=== PATIENT | female | born 1930 | race Caucasian/White ===

== ENCOUNTER 2017-03-22 15:20 | Emergency (ER) | payer MEDICARE, BC ==
[2017-03-22 15:26] VITALS: BP 144/83
== END 2017-03-22 15:28 | disposition home or self-care (01) ==
LOC: ER 15:20
DX: Z13.6 Encounter for screening for cardiovascular disorders (principal)

== ENCOUNTER 2017-07-05 10:44 | Emergency (ER) | payer MEDICARE, OTHER ==
[2017-07-05] MEDS ORDERED: LORazepam 1 MG TABLET ONE (11:56)
[2017-07-05] MEDS ORDERED: LORazepam 1 MG TABLET PO ONE (12:00)
[2017-07-05] MEDS ORDERED: carBAMazepine 100 MG TAB.CHEW PO ONE (12:30)
--- NOTE | 2017-07-05 13:06 | ERNOTE ---
Psychological HPI - General Chief Complaint: Anxiety Source: Reports: patient, RN/MD Exam Limitations: Reports: no limitations - Immun/Allergies/Home Medications Allergies/Adverse Reactions: Allergies No Known Allergies Allergy (Verified 07/05/17 11:01) Home Medications: HOME MEDICATIONS Levothyroxine Sodium [Synthroid] 75 mcg PO Q48H 11/22/13 [Last Taken Unknown] Multivitamins [Multivitamin Royce] 1 cap PO DAILY 11/22/13 [Last Taken Unknown] [place]-3S/Dha/Epa/Fish Oil [Fish Oil EC 1,200 mg Softgel] 2 each PO DAILY [Last Taken Unknown] Zolpidem Tartrate 10 mg PO HS 11/22/13 [Last Taken Unknown] ALPRAZolam [Xanax] 1 mg PO TID PRN 09/29/15 [Last Taken Unknown] Cholecalciferol (Vitamin D3) [Vitamin D3] 2,000 unit PO DAILY 09/10/16 [Last Taken Unknown] Lisinopril/Hydrochlorothiazide [Lisinopril-Hctz 20-12.5 mg Tab] 1 each PO DAILY 09/10/16 [Last Taken Unknown] Sennosides [Senokot] 8.6 mg PO DAILY PRN 09/10/16 [Last Taken Unknown] LORazepam [Ativan] 1 mg PO BID #20 tablet 06/21/17 [Last Taken Unknown] Rosuvastatin Calcium [Crestor] 20 mg PO DAILY 06/21/17 [Last Taken Unknown] Aspirin [Aspirin Enteric Coated] 81 mg PO DAILY 07/05/17 [Last Taken Unknown] Carbamazepine [Carbamazepine ER] 100 mg PO BID #20 tab.er.12h 07/05/17 [Last Taken Unknown] LORazepam [Ativan] 1 mg PO BID #20 tab 07/05/17 [Last Taken Unknown] Mirtazapine [Mirtazapine (Remeron)] 15 mg PO HS 07/05/17 [Last Taken Unknown] Sertraline HCl [Zoloft] 25 mg PO DAILY 07/05/17 [Last Taken Unknown] - History of Present Illness Narrative: Patient is currently being seen by Dr. Christine and she is struggling with the patient's underlying anxiety disorder. Patient was sent to the emergency department today to see if we had any new insight we could lend toward the care of the patient. Time Seen by Provider: 07/05/17 10:46 Onset/duration: Reports: continues in ED - chronic Situational Problems: Reports: other - children Associated Symptoms: Reports: other - anxiety with depression and a high degree of perseveration Prior Treament: Reports: recently seen, treated by physician, similar symptoms before Review of Systems - Review of Systems Constitutional: Present: See HPI EYE: Present: no symptoms reported ENT: Present: no symptoms reported Respiratory: Present: no symptoms reported Cardiology: Present: no symptoms reported Gastrointestinal/Abdominal: Present: no symptoms reported Genitourinary: Present: no symptoms reported Musculoskeletal: Present: no symptoms reported Skin: Present: no symptoms reported Neurological: Present: no symptoms reported Endocrine: Present: no symptoms reported Hematologic/Lymphatic: Present: no symptoms reported Psych: Present: anxiety, depressed, emotional problems - Patient's Past Medical History Patient History - Medical: Anemia, Anxiety, Arthritis, Depression, GERD, Hypothyroidism, Renal Failure Patient History - Cardiac/Respiratory: Aneurysm, Hypertension, Hyperlipidemia Patient History - Cancer: No Hx of Cancer Patient History - Surgical Procedures: Appendectomy, Cataracts, Colonoscopy, Hysterectomy, T & A Patient History - Other: None LMP (females 10-50): Menopausal - Family History Father Family History - Medical: Family History - Cardiac/Respiratory: Myocardial Infarction Mother Family History - Medical: Family History - Cardiac/Respiratory: CVA/Stroke son Family History - Medical: Family History - Cardiac/Respiratory: Myocardial Infarction - Social History Living Situations: home Abuse History: No History of abuse Psych History: No pertinent hx Smoking Status: Former smoker Alcohol Use: none Drug Use: none - Immunizations Immunizations Up to Date: Yes Hx Pneumococcal Vaccination: Yes History of Influenza Vaccine: Yes Psychological Exam - Exam General Appearance: Present: wd/wn, alert, no apparent distress Head Exam: Present: normal inspection, no evidence of injury Neurological: Present: alert, anxious, other - very fearful Thoughts/Hallucinations: Present: other - patient has a degree of perseveration Behavior/Eye Contact/Speech: Present: cooperative, good eye contact, increased rate of speech ENT Exam normal except (see below): Yes Ears, Nose, Throat: Present: normal ENT inspection Neck: Present: normal inspection, nontender Respiratory: Present: no respiratory distress, normal breath sounds, no accessory muscle use, chest nontender, lungs clear Cardiovascular/Chest: Present: regular rate, rhythm, no murmur, normal peripheral pulses Gastrointestinal/Abdominal: Present: normal bowel sounds, nontender, nondistended, soft, no organomegaly Rectal Exam: Present: deferred Pelvic Exam: Present: deferred Back Exam: Present: normal inspection, normal range of motion, no CVA tenderness , no vertebral tenderness Extremity Exam: Present: normal inspection, normal range of motion, no edema Skin Exam: Present: normal color, warm/dry, no cyanosis Lymphatic Exam: Present: no adenopathy ED Progress - Vital Signs Patient's Vital Signs:: I have reviewed the patient's vital signs. Vital Signs: Vital Signs 07/05/17 07/05/17 10:49 12:01 Temperature 36.3 C L Pulse Rate 108 H 119 H Respiratory 18 18 Rate Blood Pressure 143/95 129/82 O2 Sat by Pulse 96 97 Oximetry - Progress/Reassessment Chief Complaint: Anxiety Time Seen by Provider: 07/05/17 10:46 Plan - Plan Plan: I had a nice discussion with Dr. Christine and were both somewhat frustrated with how to help Elisha. Patient does not meet any Admission Criteria so We're Trying to Find Some Outpatient Facility That Will Provide Some Support. We did get an appointment for August 24 at 9 AM with [facility] for further psychiatric care. Patient is currently on sertraline and Xanax from Dr. Christine and we will try to add Tegretol as a mood stabilizer to her regimen. I am suspecting some possible early dementia as being in the mix as well and this will need to be addressed by [facility] at the time of her appointment. Departure Clinical Impression: Anxiety and depression - Departure Disposition: Home self-care Condition: Good Instructions: Panic Attacks, [id number], Dysphoria Additional Instructions: You have an appointment with [facility] on August 24 at 9 in the morning, please arrive 30 minutes or, they are located at [facility] here in [place]. The number is [phone] Referrals: Martha Christine DO [Primary Care Provider] - Prescriptions: Carbamazepine [Carbamazepine ER] 100 mg PO BID #20 tab.er.12h LORazepam [Ativan] 1 mg PO BID #20 tab
[2017-07-05 13:16] VITALS: BP 139/77
== END 2017-07-05 13:18 | disposition home or self-care (01) ==
LOC: ER 10:44
DX: F41.8 Other specified anxiety disorders (principal); D64.9 Anemia, unspecified; M19.90 Unspecified osteoarthritis, unspecified site; K21.9 Gastro-esophageal reflux disease without esophagitis; E03.9 Hypothyroidism, unspecified; I10 Essential (primary) hypertension; E78.5 Hyperlipidemia, unspecified

== ENCOUNTER 2017-07-10 07:41 | Emergency (ER) | payer MEDICARE, OTHER ==
[2017-07-10] MEDS ORDERED: LORazepam 1 MG TABLET ONE (07:53)
[2017-07-10] MEDS ORDERED: LORazepam 1 MG TABLET PO ONE (07:53)
--- NOTE | 2017-07-10 08:00 | ERNOTE ---
Psychological HPI - Date Date of Service: 07/10/17 - General Chief Complaint: Anxiety Source: Reports: patient, family - Immun/Allergies/Home Medications Allergies/Adverse Reactions: Allergies No Known Allergies Allergy (Verified 07/10/17 07:52) Home Medications: HOME MEDICATIONS Levothyroxine Sodium [Synthroid] 75 mcg PO Q48H 11/22/13 [Last Taken Unknown] Multivitamins [Multivitamin Royce] 1 cap PO DAILY 11/22/13 [Last Taken Unknown] [place]-3S/Dha/Epa/Fish Oil [Fish Oil EC 1,200 mg Softgel] 2 each PO DAILY [Last Taken Unknown] Zolpidem Tartrate 10 mg PO HS 11/22/13 [Last Taken Unknown] ALPRAZolam [Xanax] 1 mg PO TID PRN 09/29/15 [Last Taken Unknown] Cholecalciferol (Vitamin D3) [Vitamin D3] 2,000 unit PO DAILY 09/10/16 [Last Taken Unknown] Lisinopril/Hydrochlorothiazide [Lisinopril-Hctz 20-12.5 mg Tab] 1 each PO DAILY 09/10/16 [Last Taken Unknown] Sennosides [Senokot] 8.6 mg PO DAILY PRN 09/10/16 [Last Taken Unknown] LORazepam [Ativan] 1 mg PO BID #20 tablet 06/21/17 [Last Taken Unknown] Rosuvastatin Calcium [Crestor] 20 mg PO DAILY 06/21/17 [Last Taken Unknown] Aspirin [Aspirin Enteric Coated] 81 mg PO DAILY 07/05/17 [Last Taken Unknown] Carbamazepine [Carbamazepine ER] 100 mg PO BID #20 tab.er.12h 07/05/17 [Last Taken Unknown] LORazepam [Ativan] 1 mg PO BID #20 tab 07/05/17 [Last Taken Unknown] Mirtazapine [Mirtazapine (Remeron)] 15 mg PO HS 07/05/17 [Last Taken Unknown] Sertraline HCl [Zoloft] 25 mg PO DAILY 07/05/17 [Last Taken Unknown] LORazepam [Ativan] 1 mg PO TID #30 tab 07/10/17 [Last Taken Unknown] - History of Present Illness Narrative: patient has had ongoing issues with anxiety had stopped ativan and xanax not helping Time Seen by Provider: 07/10/17 07:54 Arrived by: Reports: private car Onset/duration: Reports: gradual onset, constant, continues in ED Intent: Reports: no prior thoughts-suicide Situational Problems: Reports: other - anxiety issues with family Prior Treament: Reports: recently seen, treated by physician, recently hospitalized Review of Systems - Narrative Narrative: negative except for anxiety - Review of Systems Constitutional: Present: See HPI, weakness, fatigue, malaise EYE: Present: no symptoms reported ENT: Present: no symptoms reported Respiratory: Present: no symptoms reported Cardiology: Present: no symptoms reported Gastrointestinal/Abdominal: Present: no symptoms reported Genitourinary: Present: no symptoms reported Musculoskeletal: Present: no symptoms reported Skin: Present: no symptoms reported Neurological: Present: no symptoms reported Endocrine: Present: no symptoms reported Hematologic/Lymphatic: Present: no symptoms reported Psych: Present: See HPI, anxiety, emotional problems All Other Systems: All systems neg except as marked - Narrative Narrative: as noted - Patient's Past Medical History Patient History - Medical: Anemia, Anxiety, Arthritis, Depression, GERD, Hypothyroidism, Renal Failure Patient History - Cardiac/Respiratory: Aneurysm, Hypertension, Hyperlipidemia Patient History - Cancer: No Hx of Cancer Patient History - Surgical Procedures: Appendectomy, Cataracts, Colonoscopy, Hysterectomy, T & A Patient History - Other: None LMP (females 10-50): Menopausal - Family History Family History:: no untoward family reactions to anesthesia, no familial bleeding tendencies, no family history of clotting disorders, no family history of premature - Family History Father Family History - Medical: Family History - Cardiac/Respiratory: Myocardial Infarction Mother Family History - Medical: Family History - Cardiac/Respiratory: CVA/Stroke Family History - Cancer: No pertinent family hx son Family History - Medical: Family History - Cardiac/Respiratory: Myocardial Infarction Family History - Cancer: No pertinent family hx - Social History Living Situations: alone Abuse History: No History of abuse Psych History: Hx of Anxiety Smoking Status: Former smoker Have you smoked in the past 12 months: No Do you dip or chew tobacco: No Patient requests Smoking Cessation Consult: No Initiate information on Smoking Cessation: No Alcohol Use: none Drug Use: none - Immunizations Immunizations Up to Date: Yes Hx Pneumococcal Vaccination: Yes History of Influenza Vaccine: Yes Psychological Exam - Exam Narrative: patient appears extremely anxious General Appearance: Present: moderate distress, crying Head Exam: Present: normal inspection, no evidence of injury Neurological: Present: alert, normal mood/affect, tour counselor II-XII nml as tested, oriented x 3 Thoughts/Hallucinations: Present: normal thought pattern Behavior/Eye Contact/Speech: Present: cooperative, good eye contact, normal speech ENT Exam normal except (see below): Yes Eye Exam: Normal inspection: bilateral, PERRL: bilateral, EOMI: bilateral Ears, Nose, Throat: Present: normal ENT inspection Neck: Present: normal inspection, nontender Respiratory: Present: no respiratory distress, normal breath sounds Cardiovascular/Chest: Present: regular rate, rhythm, no murmur, normal peripheral pulses Peripheral Pulses: Carotid (R): Normal, Carotid (L): Normal, Radial (R): Normal , Radial (L): Normal, Brachial (R): Normal, Brachial (L): Normal, Femoral (R): Normal, Femoral (L): Normal, Posterior tib (R): Normal Gastrointestinal/Abdominal: Present: normal bowel sounds, nontender, nondistended, soft, no organomegaly Back Exam: Present: normal inspection, normal range of motion, no CVA tenderness , no vertebral tenderness Extremity Exam: Present: normal inspection Deep Tendon Reflexes: Bicep (R): Normal, Bicep (L): Normal, Tricep (R): Normal, Tricep (L): Normal, Knee (R): Normal, Knee (L): Normal, Ankle (R): Normal, Ankle (L): Normal Skin Exam: Present: normal color, warm/dry, no cyanosis Lymphatic Exam: Present: no adenopathy ED Progress - Date and Time Seen: Date and Time: 07/10/17 08:39 patient improved, discussed med changes, to hold xanax and take ativan and other meds - Vital Signs Patient's Vital Signs:: I have reviewed the patient's vital signs. Vital Signs: Vital Signs 07/10/17 07:44 Temperature 35.8 C L Pulse Rate 83 Respiratory 16 Rate Blood Pressure 140/65 O2 Sat by Pulse 100 Oximetry - Progress/Reassessment Chief Complaint: Anxiety Progress:: Improved - Transfer of Care Expected Disposition: Discharge Time Seen by Provider: 07/10/17 07:54 Plan - Plan Plan: to be discharged, f/u with fp and counselor Departure Clinical Impression: Anxiety and depression - Departure Disposition: Home self-care Condition: Fair Instructions: Panic Attacks, [id number], Insomnia Referrals: Martha Christine DO [Primary Care Provider] - Prescriptions: LORazepam [Ativan] 1 mg PO TID #30 tab
[2017-07-10 08:56] VITALS: BP 138/66
== END 2017-07-10 08:53 | disposition home or self-care (01) ==
LOC: ER 07:41
DX: F41.9 Anxiety disorder, unspecified (principal); F32.9 Major depressive disorder, single episode, unspecified; E78.5 Hyperlipidemia, unspecified; E03.9 Hypothyroidism, unspecified; I10 Essential (primary) hypertension; Z87.891 Personal history of nicotine dependence

== ENCOUNTER 2017-07-23 14:29 | Emergency (ER) | payer MEDICARE, OTHER ==
[2017-07-23 15:20] VITALS: BP 168/90
[2017-07-23] MEDS ORDERED: ALPRAZolam 0.25 MG TABLET ONE (16:31)
[2017-07-23] MEDS ORDERED: ALPRAZolam 0.25 MG TABLET PO ONE (16:33)
--- NOTE | 2017-07-23 17:08 | ERNOTE ---
Psychological HPI - Date Date of Service: 07/23/17 - General Chief Complaint: Anxiety Source: Reports: patient Exam Limitations: Reports: no limitations - Immun/Allergies/Home Medications Allergies/Adverse Reactions: Allergies No Known Allergies Allergy (Verified 07/10/17 07:52) Home Medications: HOME MEDICATIONS Levothyroxine Sodium [Synthroid] 75 mcg PO Q48H 11/22/13 [Last Taken Unknown] Multivitamins [Multivitamin Royce] 1 cap PO DAILY 11/22/13 [Last Taken Unknown] [place]-3S/Dha/Epa/Fish Oil [Fish Oil EC 1,200 mg Softgel] 2 each PO DAILY [Last Taken Unknown] Zolpidem Tartrate 10 mg PO HS 11/22/13 [Last Taken Unknown] ALPRAZolam [Xanax] 1 mg PO TID PRN 09/29/15 [Last Taken Unknown] Cholecalciferol (Vitamin D3) [Vitamin D3] 2,000 unit PO DAILY 09/10/16 [Last Taken Unknown] Lisinopril/Hydrochlorothiazide [Lisinopril-Hctz 20-12.5 mg Tab] 1 each PO DAILY 09/10/16 [Last Taken Unknown] Sennosides [Senokot] 8.6 mg PO DAILY PRN 09/10/16 [Last Taken Unknown] LORazepam [Ativan] 1 mg PO BID #20 tablet 06/21/17 [Last Taken Unknown] Rosuvastatin Calcium [Crestor] 20 mg PO DAILY 06/21/17 [Last Taken Unknown] Aspirin [Aspirin Enteric Coated] 81 mg PO DAILY 07/05/17 [Last Taken Unknown] Carbamazepine [Carbamazepine ER] 100 mg PO BID #20 tab.er.12h 07/05/17 [Last Taken Unknown] LORazepam [Ativan] 1 mg PO BID #20 tab 07/05/17 [Last Taken Unknown] Mirtazapine [Mirtazapine (Remeron)] 15 mg PO HS 07/05/17 [Last Taken Unknown] Sertraline HCl [Zoloft] 25 mg PO DAILY 07/05/17 [Last Taken Unknown] LORazepam [Ativan] 1 mg PO TID #30 tab 07/10/17 [Last Taken Unknown] - History of Present Illness Narrative: 86-year-old female presents to the emergency room for anxiety. Patient states that they have pinched her antianxiety meds are on and today she has been feeling particularly anxious. Patient states that she took her anxiety medicine this morning and at 12:00 and still is very anxious. Time Seen by Provider: 07/23/17 15:31 Arrived by: Reports: private car Onset/duration: Reports: sudden onset Review of Systems - Review of Systems Constitutional: Present: See HPI EYE: Present: no symptoms reported ENT: Present: no symptoms reported Respiratory: Present: no symptoms reported Cardiology: Present: no symptoms reported Gastrointestinal/Abdominal: Present: no symptoms reported Genitourinary: Present: no symptoms reported Musculoskeletal: Present: no symptoms reported Skin: Present: no symptoms reported Neurological: Present: no symptoms reported Endocrine: Present: no symptoms reported Hematologic/Lymphatic: Present: no symptoms reported Psych: Present: See HPI, anxiety All Other Systems: All systems neg except as marked - Patient's Past Medical History Patient History - Medical: Anemia, Anxiety, Arthritis, Depression, GERD, Hypothyroidism, Renal Failure Patient History - Cardiac/Respiratory: Aneurysm, Hypertension, Hyperlipidemia Patient History - Cancer: No Hx of Cancer Patient History - Surgical Procedures: Appendectomy, Cataracts, Colonoscopy, Hysterectomy, T & A Patient History - Other: None - Family History Father Family History - Medical: Family History - Cardiac/Respiratory: Myocardial Infarction Mother Family History - Medical: Family History - Cardiac/Respiratory: CVA/Stroke Family History - Cancer: No pertinent family hx son Family History - Medical: Family History - Cardiac/Respiratory: Myocardial Infarction Family History - Cancer: No pertinent family hx - Social History Living Situations: alone Abuse History: No History of abuse Psych History: Hx of Anxiety, Hx of Depression Smoking Status: Former smoker Have you smoked in the past 12 months: No Alcohol Use: none Drug Use: none - Immunizations Immunizations Up to Date: Yes Hx Pneumococcal Vaccination: Yes History of Influenza Vaccine: Yes Psychological Exam - Exam General Appearance: Present: wd/wn, alert, anxious Head Exam: Present: normal inspection, no evidence of injury Neurological: Present: alert, oriented x 3, anxious Thoughts/Hallucinations: Present: normal thought pattern Behavior/Eye Contact/Speech: Present: cooperative, good eye contact, normal speech ENT Exam normal except (see below): Yes Eye Exam: Normal inspection: bilateral, PERRL: bilateral Ears, Nose, Throat: Present: normal ENT inspection, normal pharynx Neck: Present: normal inspection, nontender, supple, full range of motion Respiratory: Present: no respiratory distress, normal breath sounds, no accessory muscle use, chest nontender, lungs clear Cardiovascular/Chest: Present: regular rate, rhythm, no murmur, normal peripheral pulses Gastrointestinal/Abdominal: Present: normal bowel sounds, nontender, nondistended, soft, no organomegaly Back Exam: Present: normal inspection, normal range of motion, no CVA tenderness , no vertebral tenderness Extremity Exam: Present: normal inspection, non-tender, normal range of motion, no edema Skin Exam: Present: normal color, warm/dry, no cyanosis Lymphatic Exam: Present: no adenopathy ED Progress - Vital Signs Patient's Vital Signs:: I have reviewed the patient's vital signs. Vital Signs: Vital Signs 07/23/17 14:33 Temperature 36.4 C L Pulse Rate 98 Respiratory 16 Rate Blood Pressure 168/90 O2 Sat by Pulse 99 Oximetry - Progress/Reassessment Chief Complaint: Anxiety Progress:: Improved Progress Note-Subjective: 07/23/17 17:05 improved after medication. Time Seen by Provider: 07/23/17 15:31 Plan - Plan Plan: patient will keep Tuesday and Tue follow up apt with PCP and Psychologist Departure Clinical Impression: Anxiety - Departure Disposition: Home self-care Condition: Stable Instructions: Panic Attacks, [id number] Additional Instructions: patient to follow up with PCP tuesday and keep psychologist for Tuesday. Return to ED if symptoms persist. Referrals: Martha Christine DO [Primary Care Provider] -
[2017-07-25] MEDS ORDERED: LORazepam 2 MG/ML DISP.SYRIN ONE (10:32)
== END 2017-07-23 17:15 | disposition home or self-care (01) ==
LOC: ER 14:29
DX: Z87.891 Personal history of nicotine dependence; F41.9 Anxiety disorder, unspecified

== ENCOUNTER 2018-03-28 09:12 | Observation (INO) | payer MEDICARE, OTHER ==
[2018-03-28] MEDS ORDERED: NORMAL SALINE 1,000 ML IV ONE (09:47)
[2018-03-28 10:02] LABS: Hematocrit 33.7 % (37.0-47.0); Hemoglobin 11.6 gm/dL (12.5-16.0); Mean Cell Volume 86.2 fl (78-100); Mean Corpuscular Hemoglobin 29.7 pg (27-31); Mean Corpuscular Hgb Conc 34.4 g/dl (32-36); Mean Platelet Volume 7.8 fl (8-12.5); Neutrophil # 2.7 K/mm3 (1.3-6.0); Neutrophil % 70.7 % (42-75.0); Platelet Count 125 K/mm3 (150-450); Red Blood Count 3.91 M/mm3 (4.2-5.4); Red Cell Distribution Width 13.5 % (11.5-14.0); White Blood Count 3.8 K/mm3 (4.0-10.5)
[2018-03-28 10:06] LABS: Urine Bilirubin Negative (NEGATIVE); Urine Blood Negative /ul (NEGATIVE); Urine Ketone Negative (NEGATIVE); Urine Nitrite Negative (NEGATIVE); Urine Protein Negative (NEGATIVE); Urine Specific Gravity <=1.005 SP.GR. (1.005-1.010); Urine Urobilinogen Normal (NORMAL)
[2018-03-28 10:19] LABS: Urine Appearance Slightly Cloudy (CLEAR); Urine Bacteria 1+; Urine Color Pale Yellow; Urine RBC None Seen /hpf (0-5); Urine WBC 25-50 /hpf (0-5)
[2018-03-28 10:36] LABS: ALT 23 U/L (19-67); AST 21 U/L (0-48); Alkaline Phosphatase * 63 U/L (50-170); Anion Gap 9.5 mmol/L (6.8-13.8); BUN/Creatinine Ratio 15.3 (9.0-21.6); Bilirubin, Total 0.5 mg/dL (0.0-1.1); Blood Urea Nitrogen 13 mg/dL (3-23); Ca. Corrected For Albumin 8.8 mg/dL (8.4-10.2); Calcium * 9.1 mg/dL (7.9-10.9); Chloride 89 mmol/L (97-106); Glucose * 91 mg/dL (70-110); Potassium 3.5 mmol/L (3.4-4.6); Sodium 126 mmol/L (132-142); TSH * 2.971 uIU/mL (0.358-3.74); Troponin I Less than 0.017 ng/mL (0.00-0.10)
--- NOTE | 2018-03-28 11:27 | ERNOTE ---
Medical Problem HPI - Narrative Date of Service: 03/28/18 - General Chief Complaint: General Assessment Time Seen by Provider: 03/28/18 09:36 Source: patient Exam Limitations: no limitations - Immun/Allergies/Home Medications Immunizations: IMMUNIZATION HX Immunizations Up to Date Yes History of Influenza Vaccine Yes Hx Pneumococcal Vaccination Yes Allergies/Adverse Reactions: Allergies sertraline Adverse Reaction (Mild, Verified 03/28/18 09:23) Other hot flashes, constipation Home Medications: HOME MEDICATIONS Levothyroxine Sodium [Synthroid] 75 mcg PO Q48H 11/22/13 [Last Taken Unknown] Multivitamins [Multivitamin Royce] 1 cap PO DAILY 11/22/13 [Last Taken Unknown] [place]-3S/Dha/Epa/Fish Oil [Fish Oil EC 1,200 mg Softgel] 2 each PO DAILY 11/22/13 [Last Taken Unknown] Cholecalciferol (Vitamin D3) [Vitamin D3] 2,000 unit PO DAILY 09/10/16 [Last Taken Unknown] Lisinopril/Hydrochlorothiazide [Lisinopril-Hctz 20-12.5 mg Tab] 1 each PO DAILY 09/10/16 [Last Taken Unknown] Sennosides [Senokot] 8.6 mg PO DAILY PRN 09/10/16 [Last Taken Unknown] Rosuvastatin Calcium [Crestor] 20 mg PO DAILY 06/21/17 [Last Taken Unknown] Aspirin [Aspirin Enteric Coated] 81 mg PO DAILY 07/05/17 [Last Taken Unknown] donepezil 5 mg tablet 5 mg PO DAILY 01/16/18 [Last Taken Unknown] alprazolam 1 mg tablet 1 mg PO TID #90 tab 02/22/18 [Last Taken Unknown] lamotrigine 25 mg tablet 75 mg PO DAILY #90 tab 02/22/18 [Last Taken Unknown] mirtazapine 45 mg tablet 45 mg PO HS #30 tab 02/22/18 [Last Taken Unknown] - History of Present History Narrative: Patient presents to the ED after being called and told to come in for fluids. She had labs drawn yesterday and those results showed severe hyponatremia. She relates that she just hasn't felt like eating but is still drinking. Actually been trying to drink alot. No fever. Some cough. No chest pain or SOB. Has chronic problems with UTIs. No acute abdominal pain. Nothing makes this better or worse. Denies acute pain. Timing: constant Severity: mild Modifying Factors - (Improves): Present: other - nothign Modifying Factors - (Worsens): Present: other - nothing Review of Systems - Review of Systems Constitutional: Absent: fever EYE: Present: no symptoms reported ENT: Absent: sore throat Respiratory: Absent: shortness of breath Cardiology: Absent: chest pain Gastrointestinal/Abdominal: Absent: abdominal pain Genitourinary: Present: See HPI Neurological: Absent: weakness All Other Systems: All systems neg except as marked Medical History (Last Reviewed 03/28/18 @ 11:22 by Johnnie Wallace MD) Major depression (Chronic) Generalized anxiety disorder (Chronic) Arthritis (Chronic) Onset Date: Unknown AAA (abdominal aortic aneurysm) (Acute) Onset Date: 08/03/16 Iron deficiency anemia (Acute) Onset Date: Unknown Headache (Acute) Hypertension (Chronic) Anxiety (Acute) Anxiety and depression (Acute) Urinary tract infection (Acute) Diverticulosis of colon Onset Date: 12/31/02 Essential hypertension Onset Date: 08/03/16 H/O hyperthyroidism Onset Date: Unknown Hyperlipidemia Onset Date: Unknown Insomnia Onset Date: Unknown Normal cystoscopy Pulmonary embolism Onset Date: Unknown Pulmonary nodule Systolic murmur Onset Date: Unknown Thoracic aortic aneurysm without rupture Onset Date: 11/24/16 Carotid stenosis Chronic constipation Onset Date: 08/03/16 GERD (gastroesophageal reflux disease) Onset Date: Unknown Major depressive disorder Surgical History: Surgical History (Last Reviewed 03/28/18 @ 11:22 by Johnnie Wallace MD) Cataract Onset Date: 2003 Hx of biopsy Normal colonoscopy Onset Date: 09/16/05 S/P appendectomy Onset Date: 1943 S/P tonsillectomy and adenoidectomy Onset Date: 1943 History of YAG laser capsulotomy of lens Status post SAL[place]-BSO Family History: Family History (Last Reviewed 03/28/18 @ 11:22 by Johnnie Wallace MD) Daughter Malignant melanoma Cancer of kidney Lymphoma Multiple sclerosis Father Myocardial infarction Mother CVA (cerebral vascular accident) Colon cancer Sister Bright's disease Son Myocardial infarction Social History: Preferred Language Turkmen Abuse History No History of abuse Psych History Hx of Anxiety,Hx of Depression Alcohol Use none Drug Use none Physical Exam - Physical Exam General Appearance: Present: alert, no apparent distress Head Exam: Present: normal inspection, no evidence of injury Eye Exam: Normal inspection: bilateral, PERRL: bilateral Ears, Nose, Throat: Present: normal ENT inspection Neck: Present: normal inspection Respiratory: Present: no respiratory distress, normal breath sounds, no accessory muscle use, lungs clear Cardiovascular/Chest: Present: regular rate, rhythm, normal peripheral pulses Gastrointestinal/Abdominal: Present: normal bowel sounds, nontender, nondistended, soft Back Exam: Present: no vertebral tenderness Extremity Exam: Present: normal inspection Neurological Exam: Present: alert, no motor/sensory deficits Skin Exam: Present: normal color, warm/dry ED Progress - Results and Orders Patient's Lab Results:: I have reviewed the patient's lab results. - Vital Signs Patient's Vital Signs:: I have reviewed the patient's vital signs. Vital Signs: Vital Signs 03/28/18 09:20 03/28/18 09:26 03/28/18 09:47 Temperature 36.5 C Pulse Rate 86 91 87 Respiratory Rate 12 12 12 Blood Pressure 183/94 H 146/78 161/86 H O2 Sat by Pulse Oximetry 98 99 98 03/28/18 10:15 03/28/18 10:35 03/28/18 10:52 Temperature Pulse Rate 90 91 93 Respiratory Rate 12 12 12 Blood Pressure 142/94 H 141/94 H 143/89 O2 Sat by Pulse Oximetry 98 97 98 - EKG EKG: NSR EKG read: Interp. by me EKG Comments: NSR rate 85. Non-specific changes, no STEMI. - X-Ray X-Ray #1 X-Ray: chest Interpretation: Interp. by me X-ray Comments: I reviewed official radiology report - Progress/Reassessment Chief Complaint: General Assessment Progress Note-Subjective: 03/28/18 11:26 IV fluids given. IV ABx. Dr Christine not available. D/W Dr Pham who will admit. Patient agreeable. Departure Clinical Impression: Hyponatremia, UTI (urinary tract infection) - Departure Disposition: Still a patient Condition: Stable
[2018-03-28] MEDS ORDERED: SENNOSIDES 8.6 MG TABLET PO PRN (12:03)
[2018-03-28] MEDS ORDERED: LEVOTHYROXINE SODIUM 75 MCG TABLET PO SCH (12:15)
--- NOTE | 2018-03-28 13:19 | HP ---
Chief Complaint - Chief Complaint Date of Service: 03/28/18 Time of Service: 13:14 Chief Complaint: Weakness History of Present Illness: Elisha is an 87 yo female who reports dealing with a urinary tract infection for the last two months. She reports urinary frequency, urgency, and dysuria. She has been trying to drink lots of water to flush it out. She has been drinking so much water that she has been too full to eat food. She reports weakness and imbalance. She had routine labs prior to a clinic appointment that showed a sodium of 118. She was to follow up in clinic but to go to the ER if not improving. She continued to have some weakness and urinary symptoms so presented to the ER today. UA does look suspicious for UTI. Sodium has improved to 126 today. Medical History (Last Reviewed 03/28/18 @ 12:50 by Consuelo Crespo RN) Major depression (Chronic) Generalized anxiety disorder (Chronic) Arthritis (Chronic) Onset Date: Unknown AAA (abdominal aortic aneurysm) (Acute) Onset Date: 08/03/16 Iron deficiency anemia (Acute) Onset Date: Unknown Headache (Acute) Hypertension (Chronic) Anxiety (Acute) Anxiety and depression (Acute) Urinary tract infection (Acute) Diverticulosis of colon Onset Date: 12/31/02 Essential hypertension Onset Date: 08/03/16 H/O hyperthyroidism Onset Date: Unknown Hyperlipidemia Onset Date: Unknown Insomnia Onset Date: Unknown Normal cystoscopy Pulmonary embolism Onset Date: Unknown Pulmonary nodule Systolic murmur Onset Date: Unknown Thoracic aortic aneurysm without rupture Onset Date: 11/24/16 Carotid stenosis Chronic constipation Onset Date: 08/03/16 GERD (gastroesophageal reflux disease) Onset Date: Unknown Major depressive disorder Surgical History: Surgical History (Last Reviewed 03/28/18 @ 12:51 by Consuelo Crespo RN) Cataract Onset Date: 2003 Hx of biopsy Normal colonoscopy Onset Date: 09/16/05 S/P appendectomy Onset Date: 1943 S/P tonsillectomy and adenoidectomy Onset Date: 1943 History of YAG laser capsulotomy of lens Status post [place]-BSO Family History: Family History (Last Reviewed 03/28/18 @ 12:51 by Consuelo Crespo RN) Daughter Malignant melanoma Cancer of kidney Lymphoma Multiple sclerosis Father Myocardial infarction Mother CVA (cerebral vascular accident) Colon cancer Sister Bright's disease Son Myocardial infarction Social History: Patient Lives/Resources Home Utilized Preferred Language Serbian Do you have any buddhist or No cultural preference? Smoking Status Former smoker Have you smoked in the past 12 No months Abuse History No History of abuse Psych History Hx of Anxiety,Hx of Depression Alcohol Use none Drug Use none Review Of Systems (GEN) - Review of Systems Generalized/Overall Review: Present: Weakness, Fatigue. Absent: Chills, Fever EENTM: Present: No Symptoms Reported Respiratory: Absent: Cough, Shortness of Breath Cardiac: Absent: Chest Pain, Edema Abdominal: Present: Nausea. Absent: Vomiting Genitourinary: Present: Burning, Urgency, Frequency Musculoskeletal: Present: No Symptoms Reported Neurological: Present: No Symptoms Reported Skin: Present: No Symptoms Reported Endocrine: Present: No Symptoms Reported Immunizations: IMMUNIZATION HX Immunizations Up to Date Yes History of Influenza Vaccine Yes Hx Pneumococcal Vaccination Yes Allergies/Adverse Reactions: Allergies Allergy/AdvReac Type Severity Reaction Status Date / Time sertraline AdvReac Mild Other Verified 03/28/18 12:49 Home Medications: HOME MEDICATIONS Cholecalciferol (Vitamin D3) [Vitamin D3] 2,000 unit PO DAILY 09/10/16 [Last Taken Unknown] Lisinopril/Hydrochlorothiazide [Lisinopril-Hctz 20-12.5 mg Tab] 1 each PO DAILY 09/10/16 [Last Taken Unknown] Sennosides [Senokot] 8.6 mg PO DAILY PRN 09/10/16 [Last Taken Unknown] Rosuvastatin Calcium [Crestor] 20 mg PO DAILY 06/21/17 [Last Taken Unknown] Aspirin [Aspirin Enteric Coated] 81 mg PO DAILY 07/05/17 [Last Taken Unknown] donepezil 5 mg tablet 5 mg PO DAILY 01/16/18 [Last Taken Unknown] alprazolam 1 mg tablet 1 mg PO TID #90 tab 02/22/18 [Last Taken Unknown] mirtazapine 45 mg tablet 45 mg PO HS #30 tab 02/22/18 [Last Taken Unknown] lamoTRIgine [Lamotrigine] 25 mg PO DAILY 03/28/18 [Last Taken Unknown] Exam - Exam Vital Signs: Vital Signs - Last Taken Temp 35.8 C L 03/28/18 10:58 Pulse 93 03/28/18 11:29 Resp 12 03/28/18 11:29 BP 154/85 H 03/28/18 11:29 Pulse Ox 97 03/28/18 11:29 Constitutional: Present: Alert, Oriented x3, Cooperative ENT Exam: Present: hearing grossly normal Eye Exam: bilateral eye: normal inspection Respiratory: Present: lungs clear, normal breath sounds, no respiratory distress Cardiovascular/Chest: Present: regular rate, rhythm, no murmur Abdomen: Present: Normal bowel sounds, soft, nontender, nondistended, no rebound tenderness, no hepatospenomegaly Extremity: Present: normal inspection, no pedal edema Skin Exam: Present: normal color, warm/dry, no cyanosis Lymphatic: Present: no adenopathy Appearance: Present: appropriate appearance, appropriate insight Eye contact: Present: cooperative, good eye contact, normal speech Diagnostic Studies: Abnormal Lab Results 03/28/18 03/28/18 03/28/18 Range/Units 09:28 09:52 09:52 WBC 3.8 L (4.0-10.5) K/mm3 RBC 3.91 L (4.2-5.4) M/mm3 Hgb 11.6 L (12.5-16.0) gm/dL Hct 33.7 L (37.0-47.0) % Plt Count 125 L (150-450) K/mm3 MPV 7.8 L (8-12.5) fl Lymphocytes # 0.83 L (1.5-3.5) k/mm3 Sodium 126 L (132-142) mmol/L Plasma Sodium 126 L (130-142) mmol/L Chloride 89 L (97-106) mmol/L Ur Leukocyte Esterase 100 H (NEGATIVE) /ul Urine WBC 25-50 H (0-5) /hpf Urine Bacteria 1+ H (NONE) Laboratory Results WBC 3.8 K/mm3 (4.0-10.5) L 03/28/18 09:52 RBC 3.91 M/mm3 (4.2-5.4) L 03/28/18 09:52 Hgb 11.6 gm/dL (12.5-16.0) L 03/28/18 09:52 Hct 33.7 % (37.0-47.0) L 03/28/18 09:52 MCV 86.2 fl (78-100) 03/28/18 09:52 MCH 29.7 pg (27-31) 03/28/18 09:52 MCHC 34.4 g/dl (32-36) 03/28/18 09:52 RDW 13.5 % (11.5-14.0) 03/28/18 09:52 Plt Count 125 K/mm3 (150-450) L 03/28/18 09:52 MPV 7.8 fl (8-12.5) L 03/28/18 09:52 Immature Gran % (Auto) 0.30 % (0.001-0.429) 03/28/18 09:52 Immature Gran # (Auto) 0.01 K/mm3 (0.000-0.0310) 03/28/18 09:52 Neutrophils % 70.7 % (42-75.0) 03/28/18 09:52 Lymphocytes % 21.9 % (20-51) 03/28/18 09:52 Monocytes % 6.1 % (0.0-9) 03/28/18 09:52 Eosinophils % 0.5 % (0.0-3.0) 03/28/18 09:52 Basophils % 0.5 % (0.0-1.0) 03/28/18 09:52 Nucleated RBC % 0.0 k/mm3 (0-1) 03/28/18 09:52 Neutrophils # 2.7 K/mm3 (1.3-6.0) 03/28/18 09:52 Lymphocytes # 0.83 k/mm3 (1.5-3.5) L 03/28/18 09:52 Monocytes # 0.2 k/mm3 (0.0-1.0) 03/28/18 09:52 Eosinophils # 0.0 k/mm3 (0.0-0.7) 03/28/18 09:52 Absolute Basophils 0.0 k/mm3 (0.0-0.1) 03/28/18 09:52 Sodium 126 mmol/L (132-142) L 03/28/18 09:52 Plasma Sodium 126 mmol/L (130-142) L 03/28/18 09:52 Potassium 3.5 mmol/L (3.4-4.6) 03/28/18 09:52 Chloride 89 mmol/L (97-106) L 03/28/18 09:52 Carbon Dioxide 31.0 mmol/L (24-32.6) 03/28/18 09:52 Anion Gap 9.5 mmol/L (6.8-13.8) 03/28/18 09:52 BUN 13 mg/dL (3-23) 03/28/18 09:52 Creatinine 0.85 mg/dL (0.4-1.4) 03/28/18 09:52 Est GFR (Non-Af Amer) 67 mL/min (60-130) 03/28/18 09:52 BUN/Creatinine Ratio 15.3 (9.0-21.6) 03/28/18 09:52 Random Glucose 91 mg/dL (70-110) 03/28/18 09:52 Lactic Acid, Venous 0.9 mmol/L (0.4-2.0) 03/28/18 09:52 Calcium 9.1 mg/dL (7.9-10.9) 03/28/18 09:52 Calcium Adj for Albumin 8.8 mg/dL (8.4-10.2) 03/28/18 09:52 Total Bilirubin 0.5 mg/dL (0.0-1.1) 03/28/18 09:52 AST 21 U/L (0-48) 03/28/18 09:52 ALT 23 U/L (19-67) 03/28/18 09:52 Alkaline Phosphatase 63 U/L (50-170) 03/28/18 09:52 Troponin I Less than 0.017 ng/mL (0.00-0.10) 03/28/18 09:52 Total Protein 7.0 gm/dL (6.2-8.2) 03/28/18 09:52 Albumin 4.0 gm/dl (3.4-5.0) 03/28/18 09:52 TSH 2.971 uIU/mL (0.358-3.74) 03/28/18 09:52 Urine Color Pale yellow 03/28/18:28 Urine Appearance Slightly cloudy (CLEAR) 03/28/18:28 Urine pH 7.0 pH (5.0-7.0) 03/28/18 09:28 Ur Specific [place] <=1.005 SP.GR. (1.005-1.010) 03/28/18:28 Urine Protein Negative mg/dL (NEGATIVE) 03/28/18 09:28 Urine Glucose (UA) Negative mg/dL (NEGATIVE) 03/28/18 09:28 Urine Ketones Negative mg/dL (NEGATIVE) 03/28/18 09:28 Urine Blood Negative /ul (NEGATIVE) 03/28/18 09:28 Urine Nitrate Negative (NEGATIVE) 03/28/18 09:28 Urine Bilirubin Negative mg/dl (NEGATIVE) 03/28/18 09: Urine Urobilinogen Normal EU/dl (NORMAL) 03/28/18 09: Ur Leukocyte Esterase 100 /ul (NEGATIVE) H 03/28/18 09:28 Urine RBC None seen /hpf (0-5) 03/28/18 09: Urine WBC 25-50 /hpf (0-5) H 03/28/18:28 Ur Epithelial Cells 0-5 /hpf (0-5) 03/28/18 09: Urine Bacteria 1+ (NONE) H 03/28/18 09:28 Urine Culture Comments Culture to follow 03/28/18 09:28 Assessment/Plan - Narrative Narrative: Elisha is an 87 yo female with: 1) Hyponatremia - Sodium of 126. Suspect due to over consumption of water. Discussed not forcing water this much. Will give NS fluids and monitor sodium. Will not completely restrict free water at this point as I believe just by returned to normal water consumption the sodium will improve. 2) UTI - Urine culture taken. Started on Cipro, will adjust based on cultures. - Assessment/Plan (1) Hyponatremia Problem: Acute (2) Urinary tract infection Problem: Acute Qualifiers: Urinary tract infection type: acute cystitis
[2018-03-28] MEDS: ALPRAZolam 1 MG TABLET PO SCH ×2 (13:23→20:09)
[2018-03-28] MEDS: NORMAL SALINE 1,000 ML IV PRN (14:46)
[2018-03-28] MEDS ORDERED: ROSUVASTATIN CALCIUM 20 MG TABLET PO SCH (21:00)
[2018-03-28] MEDS ORDERED: MIRTAZAPINE 15 MG TABLET PO SCH (21:00)
[2018-03-28 22:37] LABS: Anion Gap 9.9 mmol/L (6.8-13.8); BUN/Creatinine Ratio 19.5 (9.0-21.6); Calcium * 8.4 mg/dL (7.9-10.9); Carbon Dioxide 28.1 mmol/L (24-32.6); Estimated Creat Clear 37.9
[2018-03-29] MEDS: NORMAL SALINE 1,000 ML IV PRN (01:04)
[2018-03-29] MEDS: ALPRAZolam 1 MG TABLET PO SCH ×2 (06:50→13:31)
[2018-03-29 08:59] LABS: Anion Gap 6.8 mmol/L (6.8-13.8); BUN/Creatinine Ratio 14.9 (9.0-21.6); Calcium * 8.3 mg/dL (7.9-10.9); Carbon Dioxide 28.7 mmol/L (24-32.6); Estimated Creat Clear 37.9; Potassium 3.5 mmol/L (3.4-4.6)
[2018-03-29] MEDS ORDERED: DONEPEZIL HCL 5 MG TABLET PO SCH (09:00)
[2018-03-29] MEDS ORDERED: HYDROCHLOROTHIAZIDE 12.5 MG CAPSULE PO SCH (09:00)
[2018-03-29] MEDS ORDERED: ASPIRIN 81 MG TABLET.DR PO SCH (09:00)
[2018-03-29] MEDS ORDERED: LISINOPRIL 20 MG TABLET PO SCH (09:00)
[2018-03-29] MEDS ORDERED: MULTIVITAMINS 1 CAP CAPSULE PO SCH (09:00)
[2018-03-29] MEDS ORDERED: lamoTRIgine 100 MG TABLET PO SCH (09:00)
[2018-03-29] MEDS ORDERED: CHOLECALCIFEROL 1,000 UNIT CAPSULE PO SCH (09:00)
--- NOTE | 2018-03-29 15:43 | DS ---
(1) Hyponatremia Problem: Acute (2) Urinary tract infection Problem: Acute Qualifiers: Urinary tract infection type: acute cystitis Description of Stay: Elisha is an 87 yo famale admitted with hyponatremia and urinary tract infection. She had been drinking lots of free water to flush out the presumed UTI at home and I believe she deluted her sodium. She was given normal saline and educated to decrease her free water intake from 2 quarts a day to 1 quart. She was started on ciprofloxacin and urine was culture. Sodium improved to 131 and she felt better. She was able to ambulate without difficulty. She is feeling well and will be discharged to home today. Will have her continue Cipro for UTI 500mg BID x 5 days. She will continue to drink water but will not force herself as she was before. Procedures Performed: none Results and Findings: Pending Mircobiology Results 03/28/18 09:27 Urine,Clean Catch Urine Culture - Preliminary Gram Negative Bacilli Lab Pending Results 03/28/18 09:28: Urine Color Pale yellow, Urine Appearance Slightly cloudy, Urine pH 7.0, Ur Specific [place] <=1.005, Urine Protein Negative, Urine Glucose (UA) Negative, Urine Ketones Negative, Urine Blood Negative, Urine Nitrate Negative, Urine Bilirubin Negative, Urine Urobilinogen Normal, Ur Leukocyte Esterase 100 H, Urine RBC None seen, Urine WBC 25-50 H, Ur Epithelial Cells 0-5, Urine Bacteria 1+ H, Urine Culture Comments Culture to follow 03/28/18 09:52: WBC 3.8 L, RBC 3.91 L, Hgb 11.6 L, Hct 33.7 L, MCV 86.2, MCH 29.7, MCHC 34.4, RDW 13.5, Plt Count 125 L, MPV 7.8 L, Immature Gran % (Auto) 0.30, Immature Gran # (Auto) 0.01, Neutrophils % 70.7, Lymphocytes % 21.9, Monocytes % 6.1, Eosinophils % 0.5, Basophils % 0.5, Nucleated RBC % 0.0, Neutrophils # 2.7, Lymphocytes # 0.83 L, Monocytes # 0.2, Eosinophils # 0.0, Absolute Basophils 0.0 03/28/18 09:52: Sodium 126 L, Plasma Sodium 126 L, Potassium 3.5, Chloride 89 L, Carbon Dioxide 31.0, Anion Gap 9.5, BUN 13, Creatinine 0.85, Est GFR (Non-Af Amer) 67, BUN/Creatinine Ratio 15.3, Random Glucose 91, Calcium 9.1, Calcium Adj for Albumin 8.8, Total Bilirubin 0.5, AST 21, ALT 23, Alkaline Phosphatase 63, Troponin I Less than 0.017, Total Protein 7.0, Albumin 4.0, TSH 2.971 03/28/18 09:52: Lactic Acid, Venous 0.9 03/28/18 22:27: Sodium 131 L, Plasma Sodium 131, Potassium 4.0, Chloride 97, Carbon Dioxide 28.1, Anion Gap 9.9, BUN 17, Creatinine 0.87, Est GFR (Non-Af Amer) 65, BUN/Creatinine Ratio 19.5, Random Glucose 101, Calcium 8.4 03/29/18 08:49: Sodium 131 L, Plasma Sodium 131, Potassium 3.5, Chloride 99, Carbon Dioxide 28.7, Anion Gap 6.8, BUN 13, Creatinine 0.87, Est GFR (Non-Af Amer) 65, BUN/Creatinine Ratio 14.9, Random Glucose 114 H, Calcium 8.3 Discharge Location: Home Disposition: Home self-care Condition: Good Discharge Activity: Activity as tolerated Discharge Diet: General/regular food Referrals: Martha Christine DO [Primary Care Provider] - One Week Problem Oriented Discharge Instructions to Patient/Family: Hyponatremia, Urinary Tract Infection, Adult, [id number] Additional Patient Instructions (free text): -Please make TCM appointment unless fdc discharge. Thank you! Christen @ ext:2021. Continue all usual home medications. The only change is the addition of Ciprofloxacin 500mg Twice a day x 5 days. Take first dose this evening. Prescriptions (Any new or edited meds): Ciprofloxacin HCl [Cipro] 500 mg PO BID #10 tablet Complete Home Medications List: Complete Home Medication List: Cholecalciferol (Vitamin D3) [Vitamin D3] 2,000 unit PO DAILY 09/10/16 Lisinopril/Hydrochlorothiazide [Lisinopril-Hctz 20-12.5 mg Tab] 1 each PO DAILY 09/10/16 Sennosides [Senokot] 8.6 mg PO DAILY PRN 09/10/16 Rosuvastatin Calcium [Crestor] 20 mg PO DAILY 06/21/17 Aspirin [Aspirin Enteric Coated] 81 mg PO DAILY 07/05/17 donepezil 5 mg tablet 5 mg PO DAILY 01/16/18 alprazolam 1 mg tablet 1 mg PO TID #90 tab 02/22/18 mirtazapine 45 mg tablet 45 mg PO HS #30 tab 02/22/18 lamoTRIgine [Lamotrigine] 25 mg PO DAILY 03/28/18 Ciprofloxacin HCl [Cipro] 500 mg PO BID #10 tablet 03/29/18
[2018-03-29 16:31] VITALS: BP 152/96
[2018-03-30] MEDS ORDERED: DONEPEZIL HCL 5 MG TABLET PO SCH (09:00)
== END 2018-03-29 16:16 | disposition home or self-care (01) ==
LOC: ER 09:12 → MS 09:12
PROVIDERS: ADMIT Family Medicine; ATTEND Internal Medicine
CPT/HCPCS: 36415; 71020; 71046; 80048; 80053; 81001; 83605; 84443; 84484; 85025; 87077; 87086; 87186; 90686; 93005; 96361; 96365; 99284; G0008; G0378